=== PATIENT | male | born 1975 | race Caucasian/White ===

== ENCOUNTER 2019-09-25 14:53 | Outpatient (CLI) | payer SELFPAY ==
[~2019-09-25 14:53] MED LIST: AMOX-580 PO; HYDR-4383 PO; MILK200C4 PO; MULT1TAB74 PO; PANT20TA2 PO
== END 2019-09-25 23:59 | disposition home or self-care (01) ==
LOC: RAD 14:53
PROVIDERS: ATTEND Obstetrics & Gynecology
DX: I77.89 Other specified disorders of arteries and arterioles (principal); F11.20 Opioid dependence, uncomplicated
CPT/HCPCS: 93005

== ENCOUNTER 2024-10-28 17:43 | Emergency (ER) | payer SELFPAY ==
[~2024-10-28] VITALS: Ht 177.8 cm; Wt 58.7 kg
[~2024-10-28 17:43] MED LIST changes: +MULT-620 PO; -MULT1TAB74 PO
--- NOTE | 2024-10-28 17:49 | Physician Documentation ---
History of Present Illness ~ Stated Complaint: RT ARM PAIN/FELL OFF OF 10FT LADDER Time Seen by MD: 19:26 OK to notify your PCP?: Yes Primary Medical Doctor: none Source: patient Mode of Arrival: POV Exam Limitations: no limitations HPI 49-year-old male presents with right arm pain after falling off a 10 ft ladder and putting his arm down to catch himself. He went to the chiropractor who took an x-ray and was sent with a disc with his images. he has not taken any medications for pain prior to arrival. He denies any head strike, loss of consciousness, neck pain or any other pain other than his right arm. Tetanus within 5 Years?: No Medication Reconciliation Allergies: Coded Allergies: haloperidol (Unverified Allergy, Severe, CONFUSION/AGITATION., 04/20/14) Scheduled Amox Tr/Potassium Clavulanate (Amox Tr-K Clv 875-125 mg Tab), 1 TAB PO Q12H Hydrocodone/Acetaminophen ([place] 5-325 Tablet), 1 TAB PO TID PRN Milk Thistle Seed Extract (Milk Thistle), 200 MG PO DAILY, (Reported) Multivitamins (Multivitamins), 1 TABLET PO DAILY, (Reported) Pantoprazole Sodium (Protonix), 1 TABLET PO DAILY, (Reported) Review of Systems All Other Systems at this time: Reviewed and Negative Physical Exam Vital Signs: RN Vital Signs have been reviewed: Yes Pulse Oximetry Reflects: adequate oxygenation Physical Exam General: Alert, no distress. HEENT: No injection, moist mucous membranes. Neck: Full range of motion. Respiratory: No respiratory distress, equal chest rise and fall. Chest: No accessory muscle use. Cardiovascular: Regular rate and rhythm. Gastrointestinal: Nondistended. Extremities: Point tenderness in right elbow with limited range motion, good CSM, good radial pulses. Normal range motion of right fingers. Sensation intact. Neurologic: Oriented x4. Psychiatric: Normal mood and affect. Skin: Normal color, warm and dry. Progress Results/Orders Reviewed/noted all lab results: Yes Results/Orders Completed Orders - MEKA LONG [employer] PROJECT COORDINATOR Hydrocodone/Apap 10/325 (S[place] 10/325mg (10/28/24 17:50) Vital Signs 10/28/24 17:46 Temp 97.4 Pulse 60 Resp 15 B/P (MAP) 171/87 Pulse Ox 100 EKG/XRAY/CT/US/VASC/MRI Bone/Soft Tissue X-Ray (Ext.) : Additional Comment Right elbow x-ray as interpreted by me; no dislocation, or foreign body. Elbow joint effusion. Cortical irregularities involving the radial head / neck. Possible fracture of the anterior coronoid process as well. Medical Decision Making Findings 49-year-old male presents with right arm pain after falling off a ladder and catching himself. He denies any other injuries from this fall or blood thinner use. X ray reveals radial head fracture and we have given [place] and naproxen for pain relief while here in the department. A long-arm splint has been applied with a sling as well and he has been educated to follow up with his primary care provider in the next 3 days to obtain a referral to Orthopedics as we can not do a direct referral. We also discussed the rice method and patient agrees. He should return back here for any new or worsening symptoms. I have prescribed naproxen, Tylenol and Sugarloaf for him to have at home. He states that he just cleaned his house and currently does not have any otc medications in his home. Differential Dx:Considerations: Include: Vascular injury, Contusion(s), Hematoma(s) Departure Disposition: 01 HOME / SELF CARE / HOMELESS Impression: Primary Impression: Radial head fracture Condition: Stable Discharge Instructions: Extremity Fracture Additional Instructions: Please follow up with her primary care provider in the next 3 days to obtain a referral to Orthopedics as we are unable to do a direct referral. Use Tylenol and/or naproxen for pain relief and if that is not helping you may use the [place]af as directed. Do not exceed 4000 mg of Tylenol in a 24 hour period. Please elevate, rest, ice extremity and keep her splint on until you see orthopedics. Return back here for any new or worsening symptoms. Referrals: NO PRIMARY CARE PROVIDER (PCP) Prescriptions Naproxen (Naproxen) 500 Mg Tablet 1 TAB PO Q12H for 10 Days, #20 TAB Prov: MEKA LONG [employer] PROJECT COORDINATOR 10/28/24 Acetaminophen (Tylenol) 325 Mg Tablet 1-2 TAB PO QID PRN PRN for pain or fever for 7 Days, #60 TAB Prov: MEKA LONG [employer] PROJECT COORDINATOR 10/28/24 Hydrocodone Bit/Acetaminophen (Hydrocodon-Acetaminophn 10-325 tablet) 10mg- 325mg Tablet 1 TAB PO TID PRN PRN for pain for 5 Days, #15 TAB Prov: MEKA LONG 10/28/24 Education Educated: Patient Educated regarding: diagnosis, treatment, prognosis, need for follow up Additional Comment Medical Screen Exam This patient recieved a medical screening examination. After reviewing the individual's medical complaints with presenting symptoms and performing an appropriate physical examination, it was determined that no immediate life-threa tening emergency medical condition is present. This individual is also not a women having contractions. Signature Scribe Signature: . Attestation: Scribed for Meka Long by Meka Baron NP . 10/28/24 19:49 MEKA LONG Oct 28, 2024 17:49
--- NOTE | 2024-10-28 18:53 | RADIOLOGY REPORT ---
EXAMINATIONS: 3 views of the right forearm CLINICAL HISTORY: ARM PAIN right COMPARISON: None Findings and impression: Elbow joint effusion. Cortical irregularities involving the radial head / neck. Possible fracture of the anterior coronoid process as well. Recommend dedicated views to further evaluate.
[2024-10-28] MEDS: HYDROcodone/acetaminophen 10/325mg tab PO ONE (19:32)
[2024-10-28] MEDS ORDERED: HYDR-3972 PO (19:42)
[2024-10-28] MEDS ORDERED: ACET-2119 PO (19:48)
[2024-10-28] MEDS ORDERED: NAPR-56 PO (19:48)
[2024-10-28 20:30] VITALS: BP 169/87; PULSE 58; RESP 18; TEMP 98.6; O2SAT 99
== END 2024-10-28 20:31 | disposition home or self-care (01) ==
LOC: ER 17:44
DX: S52.121A Displaced fracture of head of right radius, initial encounter for closed fracture (principal); Z88.5 Allergy status to narcotic agent; Z88.0 Allergy status to penicillin; W11.XXXA Fall on and from ladder, initial encounter; Y93.89 Activity, other specified; Y92.89 Other specified places as the place of occurrence of the external cause; Y99.8 Other external cause status
CPT/HCPCS: 29105; 73090; 99283